=== PATIENT | male | born 1940 | race Caucasian/White ===

== ENCOUNTER 2020-01-08 13:00 | Day surgery (SDC) | payer MEDICARE ==
[~2020-01-08] VITALS: Ht 185.4 cm; Wt 86.0 kg
[~2020-01-08 13:00] MED LIST: AMLO-150 PO; CALC-141 PO; CHOL20002 PO; MULT-717 PO; SAW450CA7 PO; SULF1TAB24 PO; VITA1TAB3 PO
[2020-01-08 13:12] VITALS: BP 135/83
[2020-01-08] MEDS ORDERED: SODIUM CHLORIDE 0.9% 1,000 ML IV SCH (13:23)
[2020-01-08] MEDS ORDERED: FENTANYL PF 100 MCG/2ML ONE ×2 (13:48→13:49)
[2020-01-08] MEDS ORDERED: NALOXONE 1 MG/ML, 2ML ONE (13:49)
[2020-01-08] MEDS ORDERED: FLUMAZENIL 0.1 MG/1 ML, 5ML ONE (13:49)
[2020-01-08] MEDS ORDERED: MIDAZOLAM 1 MG/ML, 5ML ONE (13:49)
== END 2020-01-08 15:00 | disposition home or self-care (01) ==
LOC: OUT 13:00 → EDSTATUS 14:00 → OUT 15:00
PROVIDERS: ATTEND Orthopaedic Surgery
DX: M19.071 Primary osteoarthritis, right ankle and foot (principal); I10 Essential (primary) hypertension
CPT/HCPCS: 20220; 77002; 87070; 87205; 88307; 88311; J3010; J2250; J2310

== ENCOUNTER 2020-12-19 21:42 | Inpatient (IN) | payer MEDICARE ==
[~2020-12-19] VITALS: Ht 185.4 cm; Wt 86.4 kg
[~2020-12-19 21:42] MED LIST changes: +SULF-23 PO; -SULF1TAB24 PO
[2020-12-19] MEDS ORDERED: LORazepam 2 MG/ML, 1ML IVPush ONE (22:00)
[2020-12-19] MEDS ORDERED: ONDANSETRON 2MG/ML, 2ML IVPush ONE (22:00)
[2020-12-19] MEDS ORDERED: SODIUM CHLORIDE 0.9% 1,000ML IVBOLUS ONE (22:00)
[2020-12-19] MEDS ORDERED: ONDANSETRON 2MG/ML, 2ML ONE (22:00)
[2020-12-19] MEDS ORDERED: LORazepam 2 MG/ML, 1ML IVPush PRN (22:00)
[2020-12-19] MEDS ORDERED: SODIUM CHLORIDE FLUSH 10ML SYR IVF ONE (22:00)
[2020-12-19] MEDS ORDERED: MAGNESIUM SULFATE 1 GM, THIAMINE 100 MG, FOLIC ACID 1 MG, MVI ADULT 10 ML in SODIUM CHL... IV ONE (22:00)
[2020-12-19] MEDS ORDERED: LORazepam 2 MG/ML, 1ML ONE (22:00)
[2020-12-19 22:23] LABS: MEAN CORPUSCULAR HEMOGLOBIN 34.5 pg (27.5-34.5); MEAN CORPUSCULAR HGB CONC 33.7 g/dL (33.2-36.2); MEAN PLATELET VOLUME 6.8 fL (7.4-10.4); PLATELET COUNT 240 x10^3/uL (130-400); RED BLOOD COUNT 4.17 x10^6/uL (4.38-5.82); RED CELL DISTRIBUTION WIDTH 13.4 % (9.4-14.8)
[2020-12-19 22:32] LABS: ALANINE AMINOTRANSFERASE 74 U/L (12-78); ALBUMIN 2.6 g/dL (3.4-5.0); ANION GAP 15 mmol/L (5-15); CALCIUM 7.5 mg/dL (8.5-10.1); CHLORIDE 107 mmol/L (98-107); CREATININE 0.72 mg/dL (0.7-1.3)
[2020-12-19 22:36] LABS: ALKALINE PHOSPHATASE 111 U/L (45-117); BILIRUBIN,TOTAL 1.7 mg/dL (0.2-1.0); TOTAL PROTEIN 5.7 g/dL (6.4-8.2); TROPONIN I 0.016 ng/mL (0.000-0.045)
--- NOTE | 2020-12-19 22:56 | NUR ---
BIBA FOR SOB, DIAPHORETIC, AND ELEVATED HR AT 160. PT WITH HX OF DEMENTIA FROM ETOH USE AND STATES HE HAS NO MEDICAL COMPLAINT. EMS GAVE 2 L NS AND PLACED 2 PIV. UPON ARRIVAL TO ER HR 145 AND RR 36. PT PLACED ON CARDIAC MONITORS. BK NOW AT BEDSIDE, ALSO POA. PT STILL DIAPHORETIC BUT DROWSY. PT AND BOTH STATE NO HX OF SZ FROM DETOXING.
--- NOTE | 2020-12-19 22:58 | NUR ---
BK/JASON [phone]. WITH JASON PAPERWORK, COPY MADE AND PLACED WITH PAPERCHART.
[2020-12-19] MEDS ORDERED: SODIUM CHLORIDE 0.9% 1,000 ML IV ONE (23:00)
[2020-12-19] MEDS ORDERED: POTASSIUM CHLORIDE 40 MEQ in SODIUM CHLORIDE 0.9% 500 ML IV ONE (23:00)
[2020-12-19] MEDS ORDERED: ALBUTEROL/IPRATROPIUM 2.5MG/0.5MG, 3 ML NPPB ONE (23:00)
[2020-12-19] MEDS ORDERED: methylPREDNISolone SOD SUCC 125 MG/2 ML IV ONE (23:00)
[2020-12-19] MEDS ORDERED: methylPREDNISolone SOD SUCC 125 MG/2 ML ONE (23:06)
[2020-12-19] MEDS ORDERED: ALBUTEROL/IPRATROPIUM 2.5MG/0.5MG, 3 ML ONE (23:06)
[2020-12-19] MEDS ORDERED: NS + 40MEQ KCL 1,000 ML IV ONE (23:07)
--- NOTE | 2020-12-19 23:15 | NUR ---
report to licha mendoza
[2020-12-19] MEDS ORDERED: POTASSIUM CHLORIDE 20 MEQ TAB.ER.PRT PO ONE (23:30)
[2020-12-19] MEDS ORDERED: ONDANSETRON 2MG/ML, 2ML IVPush PRN (23:30)
[2020-12-19] MEDS ORDERED: ACETAMINOPHEN 325 MG TABLET PO PRN (23:30)
[2020-12-19] MEDS ORDERED: ENALAPRILAT 1.25 MG/ML, 2ML IVPush PRN (23:30)
[2020-12-19] MEDS ORDERED: ENOXAPARIN 40 MG/0.4 ML SQ SCH (23:30)
[2020-12-20] VITALS (14 sets, daily range): BP systolic 92–116; BP diastolic 50–65
[2020-12-20 00:02] LABS: BAND#(MANUAL) 2.46 x10^3/uL; BANDS%(MANUAL) 14 % (0-7); LYMPH#(MANUAL) 0.53 x10^3/uL (1-3.4); LYMPHS% (MANUAL) 3 % (22-44); METAMYELOCYTES# (MANUAL) 0.18 x10^3/uL (0-0); METAMYELOCYTES% (MANUAL) 1 % (0-1); MONOS#(MANUAL) 0.53 x10^3/uL (0.3-2.7); MONOS% (MANUAL) 3 % (2-9); SEGS% (MANUAL) 79 % (42-75)
[2020-12-20 00:04] LABS: <PLATELET ESTIMATE> ADEQUATE; <PLT MORPHOLOGY> NORMAL PLT MORPH; <RBC MORPHOLOGY> NORMAL; POLYCHROMASIA 1+
[2020-12-20 00:28] LABS: INTERNATIONAL NORMALIZED RATIO 1.1 (0.93-1.1); PROTHROMBIN TIME 11.7 Seconds (9.6-11.5)
[2020-12-20] MEDS ORDERED: DONE10TA7 PO (00:59)
[2020-12-20] MEDS ORDERED: PANT40TA6 PO (00:59)
[2020-12-20] MEDS ORDERED: TRAZ-96 PO (00:59)
[2020-12-20] MEDS ORDERED: MEMA14CA5 PO (00:59)
[2020-12-20] MEDS ORDERED: LACTATED RINGERS 1,000 ML IV ONE (01:00)
[2020-12-20] MEDS ORDERED: MAGNESIUM SULFATE 1 GM in SODIUM CHLORIDE 0.9% 50 ML IV ONE (01:00)
[2020-12-20] MEDS ORDERED: MAGNESIUM SULFATE/D5W 100 ML IV ONE (01:30)
[2020-12-20] MEDS: CEFTRIAXONE 2 GM in DEXTROSE 5% 50 ML IVPB SCH (02:28)
[2020-12-20] MEDS: DOXYCYCLINE 100 MG in DEXTROSE 5% 250 ML IV SCH ×2 (02:35→13:33)
[2020-12-20 03:44] LABS: MICROSCOPIC INDICATED
[2020-12-20] MEDS: PANTOPRAZOLE 40MG TABLET PO SCH (08:01)
[2020-12-20 08:03] LABS: MEAN CORPUSCULAR HEMOGLOBIN 34.4 pg (27.5-34.5); MEAN CORPUSCULAR HGB CONC 33.1 g/dL (33.2-36.2); PLATELET COUNT 196 x10^3/uL (130-400); RED BLOOD COUNT 3.69 x10^6/uL (4.38-5.82); RED CELL DISTRIBUTION WIDTH 13.3 % (9.4-14.8)
[2020-12-20 08:07] LABS: ALANINE AMINOTRANSFERASE 143 U/L (12-78); ALBUMIN 2.2 g/dL (3.4-5.0); ANION GAP 6 mmol/L (5-15); CALCIUM 7.3 mg/dL (8.5-10.1); CHLORIDE 109 mmol/L (98-107); CREATININE 0.66 mg/dL (0.7-1.3)
[2020-12-20 08:10] LABS: ALKALINE PHOSPHATASE 103 U/L (45-117); BILIRUBIN,TOTAL 4.1 mg/dL (0.2-1.0)
[2020-12-20 08:51] LABS: BANDS%(MANUAL) 18 % (0-7); LYMPH#(MANUAL) 0.56 x10^3/uL (1-3.4); LYMPHS% (MANUAL) 2 % (22-44); MONOS#(MANUAL) 1.11 x10^3/uL (0.3-2.7); MONOS% (MANUAL) 4 % (2-9); SEG#(MANUAL) 21.13 x10^3/uL (1.8-6.8); SEGS% (MANUAL) 76 % (42-75)
[2020-12-20 08:52] LABS: <PLATELET ESTIMATE> ADEQUATE; <PLT MORPHOLOGY> NORMAL PLT MORPH; ANISOCYTOSIS 1+
[2020-12-20] MEDS ORDERED: LORazepam 1MG TABLET PO PRN ×3 (14:00)
[2020-12-20] MEDS ORDERED: LORazepam 2 MG/ML, 1ML IV PRN ×2 (14:00)
[2020-12-20] MEDS: DIAZEPAM 10 MG TABLET PO SCH ×4 (14:00→20:00)
[2020-12-20] MEDS ORDERED: ACETAMINOPHEN 650 MG SUPP ONE (16:50)
[2020-12-20] MEDS ORDERED: ACETAMINOPHEN 100 ML IVPB PRN (17:00)
[2020-12-20] MEDS ORDERED: ACETAMINOPHEN 650 MG SUPP PR PRN ×2 (17:00→17:30)
[2020-12-20] MEDS ORDERED: SODIUM CHLORIDE 0.9% 1,000ML IV ONE (17:00)
[2020-12-20] MEDS ORDERED: SODIUM CHLORIDE 0.9% 1,000ML IVBOLUS ONE (17:00)
[2020-12-20] MEDS: LORazepam 2 MG/ML, 1ML IV PRN (22:29)
[2020-12-21] MEDS: CEFTRIAXONE 2 GM in DEXTROSE 5% 50 ML IVPB SCH (00:52)
[2020-12-21] MEDS: DOXYCYCLINE 100 MG in DEXTROSE 5% 250 ML IV SCH ×2 (00:58→13:16)
[2020-12-21] MEDS: DIAZEPAM 10 MG TABLET PO SCH ×6 (02:00→23:17)
[2020-12-21 02:43] VITALS: BP 95/58
[2020-12-21 07:39] VITALS: BP 117/66
[2020-12-21] MEDS: PANTOPRAZOLE 40MG TABLET PO SCH (09:00)
[2020-12-21 12:28] VITALS: BP 117/68
[2020-12-21 12:50] LABS: ALANINE AMINOTRANSFERASE 88 U/L (12-78); ALBUMIN 2.2 g/dL (3.4-5.0); CALCIUM 7.8 mg/dL (8.5-10.1); CREATININE 0.64 mg/dL (0.7-1.3)
[2020-12-21 12:52] LABS: ALKALINE PHOSPHATASE 86 U/L (45-117); BILIRUBIN,TOTAL 1.7 mg/dL (0.2-1.0); TOTAL PROTEIN 5.4 g/dL (6.4-8.2)
[2020-12-21 13:08] LABS: ANION GAP 3 mmol/L (5-15); CHLORIDE 113 mmol/L (98-107)
[2020-12-21] MEDS: D5%-0.45NACL+KCL 20MEQ 1,000 ML IV SCH (17:55)
[2020-12-21 19:11] VITALS: BP 119/71
[2020-12-21] MEDS: LORazepam 2 MG/ML, 1ML IV PRN (21:03)
[2020-12-22 01:32] VITALS: BP 111/64
[2020-12-22] MEDS: DIAZEPAM 10 MG TABLET PO SCH ×4 (01:38→20:02)
[2020-12-22] MEDS: DOXYCYCLINE 100 MG in DEXTROSE 5% 250 ML IV SCH ×2 (01:40→12:35)
[2020-12-22] MEDS: CEFTRIAXONE 2 GM in DEXTROSE 5% 50 ML IVPB SCH (01:40)
[2020-12-22] MEDS: LORazepam 2 MG/ML, 1ML IV PRN ×3 (04:34→18:08)
[2020-12-22] MEDS: D5%-0.45NACL+KCL 20MEQ 1,000 ML IV SCH (04:49)
[2020-12-22 06:42] VITALS: BP 115/65
[2020-12-22 07:08] LABS: ALANINE AMINOTRANSFERASE 58 U/L (12-78); ANION GAP 3 mmol/L (5-15); CALCIUM 7.8 mg/dL (8.5-10.1); CHLORIDE 108 mmol/L (98-107); CREATININE 0.51 mg/dL (0.7-1.3)
[2020-12-22 07:10] LABS: ALKALINE PHOSPHATASE 77 U/L (45-117); BILIRUBIN,TOTAL 1.2 mg/dL (0.2-1.0); TOTAL PROTEIN 5.2 g/dL (6.4-8.2)
[2020-12-22] MEDS: PANTOPRAZOLE 40MG TABLET PO SCH (07:14)
[2020-12-22 09:43] LABS: OCCULT BLOOD POSITIVE (NEGATIVE)
[2020-12-22 10:40] LABS: BASOPHILS % (AUTO) 1 % (0-1); EOSINOPHILS % (AUTO) 1 % (1-7); LYMPHOCYTES % (AUTO) 7 % (22-44); MEAN CORPUSCULAR HEMOGLOBIN 34.6 pg (27.5-34.5); MEAN CORPUSCULAR HGB CONC 33.1 g/dL (33.2-36.2); MEAN PLATELET VOLUME 8.4 fL (7.4-10.4); MONOCYTES % (AUTO) 8 % (2-9); NEUTROPHILS % (AUTO) 84 % (42-75); PLATELET COUNT 131 x10^3/uL (130-400); RED BLOOD COUNT 3.08 x10^6/uL (4.38-5.82); RED CELL DISTRIBUTION WIDTH 13.7 % (9.4-14.8)
[2020-12-22 12:48] VITALS: BP 133/76
[2020-12-22 19:39] VITALS: BP 139/69
[2020-12-22 21:41] LABS: CLOSTRIDIUM DIFFICILE ANTIGEN NEGATIVE; CLOSTRIDIUM DIFFICILE TOXIN NEGATIVE (Negative)
[2020-12-23 00:09] VITALS: BP 139/72
[2020-12-23] MEDS: CEFTRIAXONE 2 GM in DEXTROSE 5% 50 ML IVPB SCH (00:21)
[2020-12-23] MEDS: LORazepam 2 MG/ML, 1ML IV PRN ×3 (00:39→20:18)
[2020-12-23] MEDS: DOXYCYCLINE 100 MG in DEXTROSE 5% 250 ML IV SCH ×2 (00:41→13:47)
[2020-12-23] MEDS: DIAZEPAM 10 MG TABLET PO SCH ×2 (01:47→10:33)
[2020-12-23 05:06] LABS: BASOPHILS % (AUTO) 0 % (0-1); EOSINOPHILS % (AUTO) 2 % (1-7); LYMPHOCYTES % (AUTO) 9 % (22-44); MEAN CORPUSCULAR HEMOGLOBIN 34.9 pg (27.5-34.5); MEAN CORPUSCULAR HGB CONC 33.6 g/dL (33.2-36.2); MEAN PLATELET VOLUME 7.8 fL (7.4-10.4); MONOCYTES % (AUTO) 12 % (2-9); NEUTROPHILS % (AUTO) 77 % (42-75); PLATELET COUNT 117 x10^3/uL (130-400); RED BLOOD COUNT 3.22 x10^6/uL (4.38-5.82); RED CELL DISTRIBUTION WIDTH 13.4 % (9.4-14.8)
[2020-12-23 05:17] LABS: CHLORIDE 104 mmol/L (98-107)
[2020-12-23 05:31] LABS: ALANINE AMINOTRANSFERASE 41 U/L (12-78); ALKALINE PHOSPHATASE 84 U/L (45-117); ANION GAP 4 mmol/L (5-15); BILIRUBIN,TOTAL 0.9 mg/dL (0.2-1.0); CREATININE 0.33 mg/dL (0.7-1.3); TOTAL PROTEIN 5.2 g/dL (6.4-8.2)
[2020-12-23 09:09] VITALS: BP 135/77
[2020-12-23] MEDS: PANTOPRAZOLE 40MG TABLET PO SCH (10:33)
[2020-12-23 12:52] VITALS: BP 136/78
[2020-12-23 19:34] VITALS: BP 134/71
[2020-12-24 00:48] VITALS: BP 140/79
[2020-12-24] MEDS: DOXYCYCLINE 100 MG in DEXTROSE 5% 250 ML IV SCH (01:00)
[2020-12-24] MEDS: CEFTRIAXONE 2 GM in DEXTROSE 5% 50 ML IVPB SCH (01:00)
[2020-12-24 07:13] VITALS: BP 128/64
[2020-12-24] MEDS: PANTOPRAZOLE 40MG TABLET PO SCH ×2 (09:12→16:59)
[2020-12-24] MEDS: POTASSIUM CHLORIDE 20 MEQ, MAGNESIUM SULFATE 1 GM, FOLIC ACID 1 MG, THIAMINE 200 MG, MV... IV SCH (12:58)
[2020-12-24] MEDS: LORazepam 0.5MG TABLET PO PRN ×2 (12:58→16:59)
[2020-12-24 13:13] VITALS: BP 150/70
[2020-12-24 20:11] VITALS: BP 127/68
[2020-12-24] MEDS: LORazepam 2 MG/ML, 1ML IV PRN (22:56)
[2020-12-25] MEDS: CEFTRIAXONE 2 GM in DEXTROSE 5% 50 ML IVPB SCH (00:25)
[2020-12-25 02:00] VITALS: BP 134/76
[2020-12-25 04:59] LABS: BASOPHILS % (AUTO) 0 % (0-1); EOSINOPHILS % (AUTO) 2 % (1-7); LYMPHOCYTES % (AUTO) 11 % (22-44); MEAN CORPUSCULAR HEMOGLOBIN 34.7 pg (27.5-34.5); MEAN CORPUSCULAR HGB CONC 34.3 g/dL (33.2-36.2); MEAN PLATELET VOLUME 7.7 fL (7.4-10.4); MONOCYTES % (AUTO) 19 % (2-9); NEUTROPHILS % (AUTO) 68 % (42-75); PLATELET COUNT 196 x10^3/uL (130-400); RED BLOOD COUNT 3.07 x10^6/uL (4.38-5.82)
[2020-12-25 05:08] LABS: ANION GAP 3 mmol/L (5-15); CALCIUM 7.6 mg/dL (8.5-10.1); CHLORIDE 102 mmol/L (98-107)
[2020-12-25] MEDS: PANTOPRAZOLE 40MG TABLET PO SCH ×2 (05:11→16:20)
[2020-12-25 05:13] LABS: ALANINE AMINOTRANSFERASE 25 U/L (12-78); ALKALINE PHOSPHATASE 88 U/L (45-117); BILIRUBIN,TOTAL 0.7 mg/dL (0.2-1.0); CREATININE 0.39 mg/dL (0.7-1.3)
[2020-12-25 06:46] VITALS: BP 132/75
[2020-12-25] MEDS ORDERED: POTASSIUM CHLORIDE 20 MEQ PACKET PO ONE (07:00)
[2020-12-25] MEDS: LORazepam 0.5MG TABLET PO PRN ×2 (08:57→18:24)
[2020-12-25] MEDS: POTASSIUM CHLORIDE 20 MEQ, MAGNESIUM SULFATE 1 GM, FOLIC ACID 1 MG, THIAMINE 200 MG, MV... IV SCH (13:24)
[2020-12-25 15:21] VITALS: BP 109/65
[2020-12-25 19:49] VITALS: BP 132/79
[2020-12-26 00:44] VITALS: BP 125/66
[2020-12-26] MEDS: CEFTRIAXONE 2 GM in DEXTROSE 5% 50 ML IVPB SCH (01:03)
[2020-12-26] MEDS: PANTOPRAZOLE 40MG TABLET PO SCH ×2 (06:16→15:25)
[2020-12-26 07:58] VITALS: BP 137/67
[2020-12-26 08:12] LABS: ANION GAP 4 mmol/L (5-15); CHLORIDE 104 mmol/L (98-107); CREATININE 0.33 mg/dL (0.7-1.3)
[2020-12-26 13:24] VITALS: BP 105/55
[2020-12-26] MEDS: POTASSIUM CHLORIDE 20 MEQ, MAGNESIUM SULFATE 1 GM, FOLIC ACID 1 MG, THIAMINE 200 MG, MV... IV SCH (13:51)
[2020-12-26 19:13] VITALS: BP 149/71
[2020-12-27 00:40] VITALS: BP 137/66
[2020-12-27] MEDS: CEFTRIAXONE 2 GM in DEXTROSE 5% 50 ML IVPB SCH ×2 (01:46→23:54)
[2020-12-27] MEDS: PANTOPRAZOLE 40MG TABLET PO SCH ×2 (05:45→15:27)
[2020-12-27 08:40] VITALS: BP 120/89
[2020-12-27] MEDS: POTASSIUM CHLORIDE 20 MEQ, MAGNESIUM SULFATE 1 GM, FOLIC ACID 1 MG, THIAMINE 200 MG, MV... IV SCH (13:32)
[2020-12-27 14:14] VITALS: BP 129/88
[2020-12-27 19:42] VITALS: BP 144/73
[2020-12-28 00:23] VITALS: BP 138/71
[2020-12-28] MEDS: PANTOPRAZOLE 40MG TABLET PO SCH ×2 (05:21→16:21)
[2020-12-28] MEDS: MULTIVITAMINS/MINERALS TABLET PO SCH (08:23)
[2020-12-28] MEDS: POTASSIUM CHLORIDE 20 MEQ PACKET PO SCH (08:23)
[2020-12-28 08:37] VITALS: BP 130/68
[2020-12-28 12:31] LABS: BASOPHILS % (AUTO) 1 % (0-1); EOSINOPHILS % (AUTO) 3 % (1-7); LYMPHOCYTES % (AUTO) 15 % (22-44); MEAN CORPUSCULAR HEMOGLOBIN 35.1 pg (27.5-34.5); MEAN CORPUSCULAR HGB CONC 34.6 g/dL (33.2-36.2); MEAN PLATELET VOLUME 6.5 fL (7.4-10.4); MONOCYTES % (AUTO) 15 % (2-9); NEUTROPHILS % (AUTO) 66 % (42-75); PLATELET COUNT 565 x10^3/uL (130-400); RED BLOOD COUNT 3.11 x10^6/uL (4.38-5.82); RED CELL DISTRIBUTION WIDTH 13.1 % (9.4-14.8)
[2020-12-28 12:40] LABS: CALCIUM 8.7 mg/dL (8.5-10.1); CREATININE 0.52 mg/dL (0.7-1.3)
[2020-12-28 12:47] VITALS: BP 121/63
[2020-12-28 12:59] LABS: ANION GAP 4 mmol/L (5-15); CHLORIDE 103 mmol/L (98-107)
[2020-12-28 18:51] VITALS: BP 143/68
[2020-12-29] MEDS: CEFTRIAXONE 2 GM in DEXTROSE 5% 50 ML IVPB SCH (01:07)
[2020-12-29 02:53] VITALS: BP 141/65
[2020-12-29] MEDS: PANTOPRAZOLE 40MG TABLET PO SCH ×2 (05:55→15:59)
[2020-12-29] MEDS: POTASSIUM CHLORIDE 20 MEQ PACKET PO SCH (08:45)
[2020-12-29] MEDS: MULTIVITAMINS/MINERALS TABLET PO SCH (08:45)
[2020-12-29 09:05] VITALS: BP 116/65
[2020-12-29 14:43] VITALS: BP 154/77
[2020-12-29 16:46] LABS: OCCULT BLOOD POSITIVE (NEGATIVE)
[2020-12-29 20:00] VITALS: BP 147/72
[2020-12-30 00:17] VITALS: BP 146/72
[2020-12-30] MEDS: CEFTRIAXONE 2 GM in DEXTROSE 5% 50 ML IVPB SCH (01:14)
[2020-12-30] MEDS: PANTOPRAZOLE 40MG TABLET PO SCH ×2 (06:28→17:10)
[2020-12-30] MEDS: MULTIVITAMINS/MINERALS TABLET PO SCH (09:34)
[2020-12-30 14:12] VITALS: BP 123/69
[2020-12-30 20:39] VITALS: BP 129/75
[2020-12-31] MEDS: CEFTRIAXONE 2 GM in DEXTROSE 5% 50 ML IVPB SCH (01:18)
[2020-12-31 01:35] VITALS: BP 132/76
[2020-12-31] MEDS: PANTOPRAZOLE 40MG TABLET PO SCH ×2 (05:34→16:25)
[2020-12-31] MEDS: MULTIVITAMINS/MINERALS TABLET PO SCH (08:08)
[2020-12-31 08:34] VITALS: BP 107/58
[2020-12-31 12:09] VITALS: BP 116/71
[2020-12-31 19:18] VITALS: BP 121/68
[2021-01-01 00:36] VITALS: BP 120/76
[2021-01-01] MEDS: CEFTRIAXONE 2 GM in DEXTROSE 5% 50 ML IVPB SCH (01:45)
[2021-01-01] MEDS: PANTOPRAZOLE 40MG TABLET PO SCH ×2 (06:20→16:36)
[2021-01-01 07:01] VITALS: BP 113/69
[2021-01-01] MEDS: MULTIVITAMINS/MINERALS TABLET PO SCH (08:59)
[2021-01-01 12:31] VITALS: BP 116/69
== END 2021-01-01 17:58 | disposition home health service (06) | DRG 871 ==
LOC: ED 12-20 00:58 → EDIP 12-20 00:59 → 4EST 12-20 01:01
PROVIDERS: ADMIT Family Medicine; ATTEND Family Medicine
DX: A41.59 Other Gram-negative sepsis (principal); J96.01 Acute respiratory failure with hypoxia; G93.41 Metabolic encephalopathy; F10.139 Alcohol abuse with withdrawal, unspecified; K80.00 Calculus of gallbladder with acute cholecystitis without obstruction; I10 Essential (primary) hypertension; G47.00 Insomnia, unspecified; E87.6 Hypokalemia; K59.00 Constipation, unspecified; I27.20 Pulmonary hypertension, unspecified; N40.0 Benign prostatic hyperplasia without lower urinary tract symptoms; F03.90 Unspecified dementia, unspecified severity, without behavioral disturbance, psychotic disturbance, mood disturbance, and anxiety; K70.9 Alcoholic liver disease, unspecified; I77.810 Thoracic aortic ectasia; D63.8 Anemia in other chronic diseases classified elsewhere; D75.89 Other specified diseases of blood and blood-forming organs; E88.09 Other disorders of plasma-protein metabolism, not elsewhere classified; Z79.899 Other long term (current) drug therapy; Z91.040 Latex allergy status; B96.1 Klebsiella pneumoniae [K. pneumoniae] as the cause of diseases classified elsewhere
CPT/HCPCS: 36415; 71045; 74176; 76705; 78226; 80048; 80053; 80320; 81001; 82140; 82272; 82607; 83605; 83690; 83735; 83880; 84100; 84145; 84443; 84484; 85014; 85018; 85025; 85610; 87040; 87077; 87186; 87324; 93005; 93306; 96361; 96365; 96375; G0378; J0696; J2405; J3411; J3475; J3480; J7042; J7060; A9537; G0480; J2060; J2930; J7030; J7040; J7120